=== PATIENT | female | born 1990 | race Asian ===

== ENCOUNTER 2018-11-06 04:52 | Inpatient (IN) | payer OTHER ==
[2018-11-06 06:10] LABS: Absolute Lymphocytes (CBC) 2.1 K/uL (0.7-4.9); Basophils % 0.3 % (0-1.3); Hematocrit 38.8 % (36.0-45.0); Lymphocytes % 23.8 % (15.3-44.8); MPV 9.2 fL (7.6-11.3); RBC Red Blood Cell Count 4.48 M/uL (3.86-4.86)
[2018-11-06 06:12] LABS: Urine Appearance CLEAR; Urine Bilirubin NEGATIVE (NEG); Urine Blood TRACE (NEG); Urine Color YELLOW; Urine Glucose NEGATIVE (NEG); Urine Protein NEGATIVE (NEG); Urine Specific Gravity <=1.005 (1.005-1.030); Urine Urobilinogen 0.2 mg/dL (0.2-1.0)
[2018-11-06 06:18] LABS: Urine Bacteria <20 /HPF (<20); Urine Culture Reflex Order NOT NEEDED; Urine RBC <5 /HPF (NONE SEEN)
[2018-11-06] MEDS ORDERED: Ringers Lactate 1,000 ML IV PRN (06:18)
[2018-11-06] MEDS ORDERED: FENTANYL CITR 100 MCG/2 ML IV ONE (06:22)
--- NOTE | 2018-11-06 06:40 | P.PN ---
Date of Service: 11/06/18 H&P dictated, latest exam 8cm, vtx presentation. Plan epidural placement at her request.
[2018-11-06] MEDS ORDERED: Ringers Lactate 1,000 ML IV SCH (07:00)
[2018-11-06] MEDS ORDERED: OXYTOCIN/LR 20 UNIT/1,000 ML BAG IV SCH (07:00)
[2018-11-06] MEDS ORDERED: DIPHENHYDRAMINE 25 MG TAB/CAP ONE (07:17)
[2018-11-06] MEDS ORDERED: CARBOPROST TROME 250 MCG/ML IM ONE (07:23)
[2018-11-06] MEDS ORDERED: LIDOCAINE 2% INJ, 20 mL 0 ML ONE (07:23)
[2018-11-06] MEDS ORDERED: METHYLERGONOVINE 0.2MG/ML AMP IM ONE (07:24)
[2018-11-06 07:37] VITALS: BMI 28.3
[2018-11-06] MEDS ORDERED: INFLUENZA VACCINE (for 3y+) 0.5 ML DOSE IMVAC ONE (09:00)
--- NOTE | 2018-11-06 11:07 | HP ---
Date of Admission: 11/06/2018 History Of Present Illness: Ms. Osei is a 28-year-old French female 2, para 1-0-0-1, now at term. She has been followed by Dr. Posey during this without significant complicat ions. She is admitted complaining of contractions, noted to be 6 cm on admission. She denies ruptur e of membranes or significant vaginal bleeding. Past Medical History: Please see record. Family History: Please see record. Review of Systems: She reports no recent cough, cold, fever, or chills. No recent nausea or vomiting. She denies any b reast knots or lumps. She denies any bowel or bladder issues. Infant has been active. Physical Examination: General: Pleasant French female in mild to moderate discomfort. Neck: Supple without adenopathy or thyromegaly. Lungs: Clear. Cardiac: Regular rate and rhythm without murmurs. Breasts: Not examined. Abdomen: Estimated weight 6+ pounds. Pelvic: Cervix now noted to be approximately 8 cm dilated, vertex presentation. Extremities: No cyanosis, clubbing, or edema. Impression: Term , active labor. Plan: The patient will be admitted. Epidural catheter will be placed at her request. KHANH/ADALID Voice ID: [id number]
[2018-11-06] MEDS ORDERED: DOCUSATE NA/SENNA CONC 1 TAB PO PRN (12:43)
[2018-11-06] MEDS ORDERED: BISACODYL 10 MG RECTAL SUPP RECT PRN (12:43)
[2018-11-06] MEDS ORDERED: ACETAMINOPHEN 500 MG TAB PO PRN (12:43)
[2018-11-06] MEDS ORDERED: METHYLERGONOVINE 0.2 MG TAB PO PRN (12:43)
[2018-11-06] MEDS ORDERED: IBUPROFEN 200 MG TAB PO PRN (12:43)
--- NOTE | 2018-11-06 12:43 | P.OP ---
Date of Service: 11/06/18 Findings and Operative Technique Patient is a 28 y/o at 39 weeks and 4 days gestation who was admitted in active labor. Patient's labor progressed well without pitocin. AROM was done and clear fluid was seen. She delivered a viable female infant in cephalic presentation on 11/06/18 at 11:04am via vacuum assisted vaginal delivery over a midline episiotomy. Vacuum was used due to bradycardia. Infant was delivered in JULIET position with the left arm being the anterior shoulder. Shoulder dystocia was encountered after the head was delivered and Xiomara was performed and delivered without difficulty. was placed on mother's abdomen. Cord blood was obtained. PLacenta was then delivered with gentle traction. Uterine massage was performed. Bleeding was controlled. Attention was then turned to the episiotomy, which was noted to be lacerated at a 3rd degree laceration. Laceration was repaired with a 2.0 vicryl in usual fashion. First stage of labor was 8 hours and 45 minutes. Second stage was 19 minutes. APGARS were 9/9. Weight was found to be 8 lb and 4 ounces. Patient was encouraged to breast feed.
[2018-11-06] MEDS: Oxycodone HCl/Acetaminophen 1 TAB TAB PO PRN ×3 (13:30→23:42)
[2018-11-07 01:28] LABS: RPR (Rapid Plasma Reagin) NON-REACT (NON-REACT)
[2018-11-07 04:55] LABS: Absolute Lymphocytes (CBC) 2.6 K/uL (0.7-4.9); Basophils % 0.2 % (0-1.3); Hematocrit 34.2 % (36.0-45.0); Lymphocytes % 23.3 % (15.3-44.8); MPV 9.2 fL (7.6-11.3); RBC Red Blood Cell Count 3.92 M/uL (3.86-4.86)
[2018-11-07] MEDS: Oxycodone HCl/Acetaminophen 1 TAB TAB PO PRN (05:04)
[2018-11-07 12:48] VITALS: BP 116/67; TEMP 98.8
[2018-11-08 20:39] LABS: HBsAG Nonreactive (Nonreactive)
== END 2018-11-07 14:05 | disposition home or self-care (01) | DRG 768 ==
LOC: L&D 04:52 → 2ND-WC 05:26
PROVIDERS: ADMIT Student in an Organized Health Care Education/Training Program; ATTEND Student in an Organized Health Care Education/Training Program
PROC: 10D07Z6 Extraction of Products of Conception, Vacuum, Via Natural or Artificial Opening (ICD-10-PCS; principal; 2018-11-06)
PROC: 0DQR0ZZ Repair Anal Sphincter, Open Approach (ICD-10-PCS; 2018-11-06)
PROC: 10907ZC Drainage of Amniotic Fluid, Therapeutic from Products of Conception, Via Natural or Artificial Opening (ICD-10-PCS; 2018-11-06)
PROC: 0W8NXZZ Division of Female Perineum, External Approach (ICD-10-PCS; 2018-11-06)
DX: O76 Abnormality in fetal heart rate and rhythm complicating labor and delivery (principal); Z37.1 Single stillbirth; O70.20 Third degree perineal laceration during delivery, unspecified; O66.0 Obstructed labor due to shoulder dystocia; Z3A.39 39 weeks gestation of pregnancy
CPT/HCPCS: 36415; 81001; 85014; 85025; 86592; 86901; 87340; J2210; J2590; J3010